=== PATIENT | female | born 1965 | race Caucasian/White ===

== ENCOUNTER 2017-01-31 19:32 | Inpatient (IN) | payer BC, OTHER ==
[~2017-01-31] VITALS: Ht 160 cm; Wt 40.4 kg
[2017-01-31 22:25] LABS: HEMOGLOBIN 16.5 gm/dl (12.3-15.3); RED BLOOD COUNT 5.06 M/UL (4.00-5.10)
[2017-01-31 22:46] LABS: BUN/CREATININE RATIO 23 (0-10)
[2017-02-01 08:05] LABS: HEMOGLOBIN 16.2 gm/dl (12.3-15.3); RED BLOOD COUNT 5.12 M/UL (4.00-5.10); WHITE BLOOD COUNT 10.2 K/UL (4.5-11.0)
[2017-02-01] MEDS ORDERED: DOXYCYCLINE MO100 MG PO (09:54)
[2017-02-01] MEDS ORDERED: MEGACE SUSP40 MG/M1 PO (09:57)
[2017-02-01] MEDS ORDERED: SINGULAIR10 MG PO (09:58)
[2017-02-01] MEDS ORDERED: NICOTINE PATCH1 EAC5 TD (10:06)
[2017-02-01] MEDS ORDERED: FLONASE 0.05% N16 GM (10:08)
[2017-02-01] MEDS ORDERED: IPRAT-ALBUT 0.5-3 ML INH (10:09)
[2017-02-01] MEDS ORDERED: SPIRIVA INH (19:56)
[2017-02-01] MEDS ORDERED: ZYRTEC10 MG PO (19:57)
[2017-02-02 07:11] LABS: HEMOGLOBIN 14.5 gm/dl (12.3-15.3)
[2017-02-02 07:21] LABS: RED BLOOD COUNT 4.46 M/UL (4.00-5.10); WHITE BLOOD COUNT 19.6 K/UL (4.5-11.0)
[2017-02-02 07:39] LABS: BUN/CREATININE RATIO 46 (0-10)
[2017-02-03 07:11] LABS: RED BLOOD COUNT 4.41 M/UL (4.00-5.10); WHITE BLOOD COUNT 15.1 K/UL (4.5-11.0)
[2017-02-03 07:28] LABS: BUN/CREATININE RATIO 40 (0-10)
[2017-02-05 04:28] LABS: HEMOGLOBIN 13.3 gm/dl (12.3-15.3); RED BLOOD COUNT 4.15 M/UL (4.00-5.10)
[2017-02-05 04:52] LABS: BUN/CREATININE RATIO 46 (0-10)
[2017-02-06 04:36] LABS: HEMOGLOBIN 13.6 gm/dl (12.3-15.3); RED BLOOD COUNT 4.32 M/UL (4.00-5.10); WHITE BLOOD COUNT 11.5 K/UL (4.5-11.0)
[2017-02-06 04:38] LABS: BUN/CREATININE RATIO 40 (0-10)
== END 2017-02-06 09:15 | disposition short-term general hospital (02) | DRG 199 ==
LOC: ER1 19:32 → ZEROF 23:40 → CCU 23:40 → M/S 02-01 16:27 → CCU 02-03 12:20
PROVIDERS: Internal Medicine; Student in an Organized Health Care Education/Training Program; ADMIT Internal Medicine
PROC: 0W9930Z Drainage of Right Pleural Cavity with Drainage Device, Percutaneous Approach (ICD-10-PCS; principal; 2017-02-01)
PROC: 0W9930Z Drainage of Right Pleural Cavity with Drainage Device, Percutaneous Approach (ICD-10-PCS; 2017-02-03)
DX: J93.83 Other pneumothorax (principal); E43 Unspecified severe protein-calorie malnutrition; J96.21 Acute and chronic respiratory failure with hypoxia; J44.1 Chronic obstructive pulmonary disease with (acute) exacerbation; Z68.1 Body mass index [BMI] 19.9 or less, adult; Z72.0 Tobacco use; Z71.6 Tobacco abuse counseling; D72.829 Elevated white blood cell count, unspecified
CPT/HCPCS: 36415; 36600; 71010; 71020; 76000; 80048; 80053; 82550; 82553; 82803; 83605; 83874; 83880; 84484; 85025; 85027; 85379; 87040; 87070; 87205; 94640; 94664; 96365; 96375; 99285; J1100; J1650; J1885; J1956; J2250; J2405; J2920; J2930; J7030; J7120

== ENCOUNTER → 2017-02-13 | Outpatient (CLI) | payer BC ==
[~2017-02-13] MED LIST: DOXYCYCLINE MO100 MG PO; FLONASE 0.05% N16 GM; IPRAT-ALBUT 0.5-3 ML INH; MEGACE SUSP40 MG/M1 PO; NICOTINE PATCH1 EAC5 TD; SINGULAIR10 MG PO; SPIRIVA INH; ZYRTEC10 MG PO
== END ==
LOC: LBRF 19:40
DX: J93.9 Pneumothorax, unspecified (principal)
CPT/HCPCS: 87070; 87077; 87186; 87205

== ENCOUNTER 2020-11-11 10:18 | Inpatient (IN) | payer OTHER ==
[~2020-11-11 10:18] MED LIST changes: +ALBUTEROL2.5 MG/3 M INH; +CALCIUM500 MG PO; +DOXYCYCLINE HY100 MG PO; +DYMISTA NASAL S23 GM; +HUMIBID LA TAB600 MG PO; +LOPRESSOR 50 MG50 MG PO; +LOPRESSOR50 MG PO; +MEGACE 400400 MG/10 PO; +MONTELUKAST SODI5 MG PO; +PAROXETINE HCL20 MG PO; +PREDNISONE 5 MG5 MG PO; +PREDNISONE5 MG PO; +PROTONIX 40 MG40 M1 PO; +SENNA-TIME S T1 EACH PO; +SPIRIVA RESPIMAT4 GM INH; +SPIRIVA18 MCG INH; +SYMBICORT 160-1 INHA INH; +SYMBICORT 16010.2 GM INH; +VENTOLIN HFA 66.7 GM INH
[2020-11-11 10:52] LABS: RED BLOOD COUNT 4.84 M/UL (4.00-5.10); WHITE BLOOD COUNT 14.9 K/UL (4.5-11.0)
[2020-11-11 11:31] LABS: BUN/CREATININE RATIO 30 (0-10)
[2020-11-11] MEDS ORDERED: NICOTINE PATCH1 EAC5 TOP (14:22)
[2020-11-12 02:39] LABS: HEMOGLOBIN 13.4 gm/dl (12.3-15.3); WHITE BLOOD COUNT 12.9 K/UL (4.5-11.0)
[2020-11-12 02:40] LABS: RED BLOOD COUNT 4.25 M/UL (4.00-5.10)
[2020-11-12 03:43] LABS: BUN/CREATININE RATIO 27 (0-10)
[2020-11-13 03:50] LABS: HEMOGLOBIN 11.4 gm/dl (12.3-15.3); RED BLOOD COUNT 3.65 M/UL (4.00-5.10); WHITE BLOOD COUNT 18.7 K/UL (4.5-11.0)
[2020-11-13 04:16] LABS: BUN/CREATININE RATIO 47 (0-10)
[2020-11-14 03:32] LABS: HEMOGLOBIN 11.6 gm/dl (12.3-15.3); RED BLOOD COUNT 3.73 M/UL (4.00-5.10); WHITE BLOOD COUNT 15.9 K/UL (4.5-11.0)
[2020-11-14 04:06] LABS: BUN/CREATININE RATIO 64 (0-10)
[2020-11-15 02:45] LABS: HEMOGLOBIN 12.3 gm/dl (12.3-15.3); RED BLOOD COUNT 3.86 M/UL (4.00-5.10); WHITE BLOOD COUNT 13.7 K/UL (4.5-11.0)
[2020-11-15 03:11] LABS: BUN/CREATININE RATIO 54 (0-10)
[2020-11-15] MEDS ORDERED: LACTULOSE20 GM/30 M PO (08:52)
[2020-11-15] MEDS ORDERED: MYCOSTATIN100000 UTS PO (08:52)
[2020-11-15] MEDS ORDERED: DOXYCYCLINE HY100 MG PO (08:52)
[2020-11-15] MEDS ORDERED: RAMELTEON8 MG PO (08:52)
[2020-11-15] MEDS ORDERED: NICOTINE PATCH1 EAC5 TOP (08:52)
[2020-11-15] MEDS ORDERED: COLACE 100MG C100 MG PO (08:52)
[2020-11-15] MEDS ORDERED: PREDNISONE5 MG PO (08:52)
== END 2020-11-15 13:15 | disposition home or self-care (01) | DRG 191 ==
LOC: ER1 10:18 → CDU 12:43 → PROG CARE 12:43
PROVIDERS: Internal Medicine; Internal Medicine Pulmonary Disease; Nurse Practitioner; Physician Assistant; ADMIT Internal Medicine
PROC: 0W9930Z Drainage of Right Pleural Cavity with Drainage Device, Percutaneous Approach (ICD-10-PCS; principal; 2020-11-11)
PROC: 3E02340 Introduction of Influenza Vaccine into Muscle, Percutaneous Approach (ICD-10-PCS; 2020-11-11)
DX: J43.9 Emphysema, unspecified (principal); E44.0 Moderate protein-calorie malnutrition; Z68.1 Body mass index [BMI] 19.9 or less, adult; E87.2 Acidosis; E87.1 Hypo-osmolality and hyponatremia; J93.12 Secondary spontaneous pneumothorax; F17.210 Nicotine dependence, cigarettes, uncomplicated; Z99.81 Dependence on supplemental oxygen; Z71.6 Tobacco abuse counseling; I10 Essential (primary) hypertension; F41.9 Anxiety disorder, unspecified; M81.0 Age-related osteoporosis without current pathological fracture; K21.9 Gastro-esophageal reflux disease without esophagitis; G47.00 Insomnia, unspecified; Z20.822 Contact with and (suspected) exposure to COVID-19; Z66 Do not resuscitate; R91.8 Other nonspecific abnormal finding of lung field; Z23 Encounter for immunization
CPT/HCPCS: 36415; 36600; 71045; 71046; 80053; 81001; 82550; 82553; 82803; 83605; 83874; 83880; 84484; 85025; 87040; 87086; 90471; 90686; 93005; 94640; 94664; 94760; 96365; 96375; 99285; G0008; J0696; J1100; J1650; J1885; J2920; J7030; U0002

== ENCOUNTER 2020-11-16 11:48 | Emergency (ER) | payer OTHER ==
[~2020-11-16 11:48] MED LIST changes: +COLACE 100MG C100 MG PO; +LACTULOSE20 GM/30 M PO; +MYCOSTATIN100000 UTS PO; +NICOTINE PATCH1 EAC5 TOP; +RAMELTEON8 MG PO
[2020-11-16 12:26] LABS: HEMOGLOBIN 13.9 gm/dl (12.3-15.3); WHITE BLOOD COUNT 12.9 K/UL (4.5-11.0)
[2020-11-16 12:30] LABS: RED BLOOD COUNT 4.36 M/UL (4.00-5.10)
[2020-11-16 12:44] LABS: BUN/CREATININE RATIO 42 (0-10)
== END 2020-11-16 19:28 | disposition short-term general hospital (02) ==
LOC: ER1 11:48 → CDU 16:22 → ER1 16:22
PROVIDERS: Family Medicine
DX: J93.83 Other pneumothorax (principal); J98.2 Interstitial emphysema; J44.9 Chronic obstructive pulmonary disease, unspecified; K21.9 Gastro-esophageal reflux disease without esophagitis; R91.8 Other nonspecific abnormal finding of lung field; I10 Essential (primary) hypertension; F41.9 Anxiety disorder, unspecified; M81.0 Age-related osteoporosis without current pathological fracture; E43 Unspecified severe protein-calorie malnutrition; F17.210 Nicotine dependence, cigarettes, uncomplicated; Z99.81 Dependence on supplemental oxygen; Z79.52 Long term (current) use of systemic steroids; Z20.822 Contact with and (suspected) exposure to COVID-19
CPT/HCPCS: 36600; 71045; 71250; 80053; 82550; 82553; 82803; 83605; 83874; 84484; 85025; 93005; 96374; 96375; 99285; J2930; U0002

== ENCOUNTER → 2020-12-30 | Outpatient (CLI) | payer OTHER ==
[~2020-12-30] MED LIST changes: +BROVANA15 MCG/2 M NEB; +CLARITIN 10MG T10 MG PO; +IPRATROPIU0.2 MG/1 M INH; +LEVALBUTER1.25 MG/3 NEB; +MILLIPRED5 MG PO; +PREDNISONE 10 M10 MG PO; +PREDNISONE20 MG PO; +VIBRAMYCIN100 MG PO
== END ==
LOC: EXRD 11:02
DX: J93.9 Pneumothorax, unspecified (principal); R06.02 Shortness of breath; R91.8 Other nonspecific abnormal finding of lung field
CPT/HCPCS: 71046

== ENCOUNTER 2021-02-13 17:57 | Emergency (ER) | payer OTHER ==
[~2021-02-13 17:57] MED LIST changes: -BROVANA15 MCG/2 M NEB; -CLARITIN 10MG T10 MG PO; -IPRATROPIU0.2 MG/1 M INH; -LEVALBUTER1.25 MG/3 NEB; -MILLIPRED5 MG PO; -PREDNISONE 10 M10 MG PO; -PREDNISONE20 MG PO; -VIBRAMYCIN100 MG PO
[2021-02-13 18:37] LABS: HEMOGLOBIN 13.5 gm/dl (12.3-15.3); RED BLOOD COUNT 4.25 M/UL (4.00-5.10); WHITE BLOOD COUNT 14.2 K/UL (4.5-11.0)
[2021-02-13 18:58] LABS: BUN/CREATININE RATIO 33 (0-10)
[2021-02-13] MEDS ORDERED: VIBRAMYCIN100 MG PO (19:56)
[2021-02-13] MEDS ORDERED: PREDNISONE 10 M10 MG PO (19:56)
== END 2021-02-13 20:40 | disposition home or self-care (01) ==
LOC: ER1 17:57
PROVIDERS: Emergency Medicine
DX: J44.0 Chronic obstructive pulmonary disease with (acute) lower respiratory infection (principal); J20.9 Acute bronchitis, unspecified; J44.1 Chronic obstructive pulmonary disease with (acute) exacerbation; Z20.822 Contact with and (suspected) exposure to COVID-19
CPT/HCPCS: 0240U; 71045; 80053; 82550; 82553; 83874; 83880; 84484; 85025; 93005; 94664; 96374; 99285; J1100

== ENCOUNTER 2021-02-24 05:06 | Emergency (ER) | payer OTHER ==
[~2021-02-24 05:06] MED LIST changes: +PREDNISONE 10 M10 MG PO; +VIBRAMYCIN100 MG PO
[2021-02-24 05:26] LABS: HEMOGLOBIN 13.3 gm/dl (12.3-15.3); RED BLOOD COUNT 4.2 M/UL (4.00-5.10); WHITE BLOOD COUNT 12.7 K/UL (4.5-11.0)
[2021-02-24 05:54] LABS: BUN/CREATININE RATIO 26 (0-10)
[2021-02-24] MEDS ORDERED: PREDNISONE20 MG PO (06:31)
== END 2021-02-24 07:21 | disposition home or self-care (01) ==
LOC: ER1 05:06
PROVIDERS: Family Medicine
DX: J44.1 Chronic obstructive pulmonary disease with (acute) exacerbation (principal); J96.11 Chronic respiratory failure with hypoxia; R51.9 Headache, unspecified; J96.12 Chronic respiratory failure with hypercapnia; F17.200 Nicotine dependence, unspecified, uncomplicated; I10 Essential (primary) hypertension; Z20.822 Contact with and (suspected) exposure to COVID-19
CPT/HCPCS: 0240U; 36600; 71045; 80048; 82550; 82553; 82803; 83605; 83874; 83880; 84484; 85025; 93005; 94664; 96374; 99285; J2930

== ENCOUNTER 2021-03-16 16:10 | Inpatient (IN) | payer OTHER ==
[~2021-03-16] VITALS: Ht 160 cm; Wt 44.0 kg
[~2021-03-16 16:10] MED LIST changes: +PREDNISONE20 MG PO
[2021-03-16 16:58] LABS: HEMOGLOBIN 10.9 gm/dl (12.3-15.3); RED BLOOD COUNT 3.47 M/UL (4.00-5.10); WHITE BLOOD COUNT 13.5 K/UL (4.5-11.0)
[2021-03-16 17:29] LABS: BUN/CREATININE RATIO 23 (0-10)
[2021-03-16] MEDS ORDERED: PREDNISONE 5 MG5 MG PO (19:42)
[2021-03-17 03:31] LABS: HEMOGLOBIN 10.5 gm/dl (12.3-15.3); RED BLOOD COUNT 3.45 M/UL (4.00-5.10); WHITE BLOOD COUNT 13.1 K/UL (4.5-11.0)
[2021-03-17 06:39] LABS: BUN/CREATININE RATIO 23 (0-10)
[2021-03-17] MEDS ORDERED: PROTONIX 40 MG40 M1 PO (10:16)
[2021-03-18 04:23] LABS: HEMOGLOBIN 10.7 gm/dl (12.3-15.3); RED BLOOD COUNT 3.49 M/UL (4.00-5.10); WHITE BLOOD COUNT 13.8 K/UL (4.5-11.0)
[2021-03-18 05:02] LABS: BUN/CREATININE RATIO 35 (0-10)
[2021-03-19 04:34] LABS: HEMOGLOBIN 10.6 gm/dl (12.3-15.3); RED BLOOD COUNT 3.46 M/UL (4.00-5.10); WHITE BLOOD COUNT 11.2 K/UL (4.5-11.0)
[2021-03-19 04:55] LABS: BUN/CREATININE RATIO 34 (0-10)
[2021-03-20 04:10] LABS: HEMOGLOBIN 11.2 gm/dl (12.3-15.3); RED BLOOD COUNT 3.7 M/UL (4.00-5.10); WHITE BLOOD COUNT 11.4 K/UL (4.5-11.0)
[2021-03-20 04:33] LABS: BUN/CREATININE RATIO 41 (0-10)
[2021-03-20 18:50] LABS: BUN/CREATININE RATIO 39 (0-10)
[2021-03-21 04:42] LABS: HEMOGLOBIN 11.1 gm/dl (12.3-15.3); RED BLOOD COUNT 3.64 M/UL (4.00-5.10); WHITE BLOOD COUNT 13.5 K/UL (4.5-11.0)
[2021-03-21 05:11] LABS: BUN/CREATININE RATIO 35 (0-10)
--- NOTE | 2021-03-21 14:45 | NUR ---
1435: RECEIVED REPORT FROM LANI REIS. RN ASSUMED CARE OF THIS PATIENT.
[2021-03-22 04:19] LABS: HEMOGLOBIN 11.2 gm/dl (12.3-15.3); RED BLOOD COUNT 3.65 M/UL (4.00-5.10); WHITE BLOOD COUNT 14.5 K/UL (4.5-11.0)
[2021-03-22 04:45] LABS: BUN/CREATININE RATIO 46 (0-10)
[2021-03-22] MEDS ORDERED: CLARITIN 10MG T10 MG PO (11:54)
[2021-03-22] MEDS ORDERED: LEVALBUTER1.25 MG/3 NEB (11:54)
[2021-03-22] MEDS ORDERED: BROVANA15 MCG/2 M NEB (12:10)
[2021-03-22] MEDS ORDERED: MILLIPRED5 MG PO (12:10)
[2021-03-22] MEDS ORDERED: IPRATROPIU0.2 MG/1 M INH (12:10)
== END 2021-03-22 15:24 | disposition home or self-care (01) | DRG 189 ==
LOC: ER1 16:10 → CDU 18:19 → MED SURG 4 18:19
PROVIDERS: Internal Medicine; Physician Assistant Medical; Preventive Medicine Occupational Medicine; ADMIT Internal Medicine
DX: J96.21 Acute and chronic respiratory failure with hypoxia (principal); E43 Unspecified severe protein-calorie malnutrition; Z68.1 Body mass index [BMI] 19.9 or less, adult; J96.22 Acute and chronic respiratory failure with hypercapnia; Z20.822 Contact with and (suspected) exposure to COVID-19; J98.2 Interstitial emphysema; I10 Essential (primary) hypertension; M81.0 Age-related osteoporosis without current pathological fracture; F17.210 Nicotine dependence, cigarettes, uncomplicated; F41.9 Anxiety disorder, unspecified; K21.9 Gastro-esophageal reflux disease without esophagitis; D64.9 Anemia, unspecified; Z98.51 Tubal ligation status; Z80.1 Family history of malignant neoplasm of trachea, bronchus and lung
CPT/HCPCS: 0240U; 36415; 36600; 71045; 80048; 80053; 82550; 82553; 82803; 83690; 83735; 83874; 83880; 84484; 85025; 85027; 86140; 87040; 93005; 94640; 94660; 94664; 94760; 96374; 96375; 99285; J0456; J0696; J1650; J2920; J2930; J7030

== ENCOUNTER 2021-06-28 06:56 | Inpatient (IN) | payer OTHER ==
[~2021-06-28] VITALS: Ht 160 cm; Wt 48.8 kg
[~2021-06-28 06:56] MED LIST changes: +BROVANA15 MCG/2 M NEB; +CLARITIN 10MG T10 MG PO; +IPRATROPIU0.2 MG/1 M INH; +LEVALBUTER1.25 MG/3 NEB; +MILLIPRED5 MG PO; +ULTRAM50 MG PO
[2021-06-28 09:11] LABS: RED BLOOD COUNT 3.82 M/UL (4.00-5.10); WHITE BLOOD COUNT 16.9 K/UL (4.5-11.0)
[2021-06-28 09:30] LABS: BUN/CREATININE RATIO 44 (0-10)
[2021-06-28] MEDS ORDERED: BUDESONIDE-FO10.2 GM INH (18:21)
[2021-06-28] MEDS ORDERED: OMNICEF 300 MG300 MG PO (18:26)
[2021-06-28] MEDS ORDERED: MUCUS RELIEF600 MG PO (18:27)
[2021-06-28] MEDS ORDERED: MEGESTROL400 MG/12 PO (18:28)
[2021-06-28] MEDS ORDERED: MONTELUKAST SODI5 MG PO (18:29)
[2021-06-28] MEDS ORDERED: PREDNISONE5 MG PO (18:29)
[2021-06-28] MEDS ORDERED: CETIRIZINE HCL10 MG PO (18:30)
[2021-06-28] MEDS ORDERED: SPIRIVA18 MCG INH (18:30)
[2021-06-28] MEDS ORDERED: LOPRESSOR 50 MG50 MG PO (18:31)
[2021-06-28] MEDS ORDERED: LEVALBUTER1.25 MG/3 INH (18:33)
[2021-06-28] MEDS ORDERED: NICOTINE PATCH1 EAC1 TD (18:33)
[2021-06-28] MEDS ORDERED: VENTOLIN HFA 66.7 GM INH (18:34)
[2021-06-28] MEDS ORDERED: IPRATROPIU0.2 MG/1 M INH (18:37)
[2021-06-28] MEDS ORDERED: FLONASE 0.05% N16 GM (18:38)
[2021-06-28] MEDS ORDERED: MYCOSTATIN100000 UTS PO (18:41)
[2021-06-28] MEDS ORDERED: COLACE100 MG PO (18:47)
[2021-06-28] MEDS ORDERED: CALCIUM 500 +1 EAC1 PO (18:48)
[2021-06-29 04:40] LABS: HEMOGLOBIN 10.2 gm/dl (12.3-15.3)
[2021-06-29 04:41] LABS: RED BLOOD COUNT 3.27 M/UL (4.00-5.10); WHITE BLOOD COUNT 11.4 K/UL (4.5-11.0)
[2021-06-29 04:56] LABS: BUN/CREATININE RATIO 38 (0-10)
[2021-06-30 04:30] LABS: HEMOGLOBIN 9.8 gm/dl (12.3-15.3); RED BLOOD COUNT 3.19 M/UL (4.00-5.10)
[2021-06-30 04:49] LABS: BUN/CREATININE RATIO 61 (0-10)
[2021-07-01 04:00] LABS: HEMOGLOBIN 9.9 gm/dl (12.3-15.3); RED BLOOD COUNT 3.29 M/UL (4.00-5.10); WHITE BLOOD COUNT 9.9 K/UL (4.5-11.0)
[2021-07-01 04:18] LABS: BUN/CREATININE RATIO 57 (0-10)
[2021-07-01 05:14] LABS: ACINETOBACTER BAUMANNII Not Detected (Negative); CANDIDA ALBICANS Not Detected (Negative); CANDIDA KRUSEI Not Detected (Negative); CANDIDA TROPICALIS Not Detected (Negative); ENTEROCOCCUS Not Detected (Negative); ESCHERICHIA COLI Not Detected (Negative); HAEMOPHILUS INFLUENZAE Not Detected (Negative); KLEBSIELLA OXYTOCA Not Detected (Negative); KLEBSIELLA PNEUMONIAE Not Detected (Negative); KPC-CARBAPENEM-RESISTANCE GENE Not Detected (Negative); PROTEUS Not Detected (Negative); PSEUDOMONAS AERUGINOSA Not Detected (Negative); SERRATIA MARCESANS Not Detected (Negative); STAPHYLOCOCCUS AUREUS Not Detected (Negative); STREP AGALACTIAE (GROUP B) Not Detected (Negative); STREP PYOGENES (GROUP A) Not Detected (Negative); STREPTOCOCCUS Not Detected (Negative); vanA/B (VANCOMYCIN RESIST GENE Not Detected (Negative)
[2021-07-01 06:44] LABS: STAPHYLOCOCCUS DETECTED (Negative); mecA (METHICILLIN RESIST GENE DETECTED (Negative)
--- NOTE | 2021-07-02 06:50 | NUR ---
CALLED TO PTS ROOM TO OBSERVE PT UNRESPONSIVE AND GUPPY BREATHING. HR 127, BP 180/99, O2 SAT 92 ON 3 LPM VIA NC, RESP 19. MD CALLED AND [employer] CALLED
[2021-07-02 07:42] LABS: RED BLOOD COUNT 3.6 M/UL (4.00-5.10)
[2021-07-02 08:19] LABS: BUN/CREATININE RATIO 57 (0-10)
--- NOTE | 2021-07-02 22:52 | NUR ---
IO IN RIGHT LOWER LEG REMOVED WITHOUT COMPLICATION. SITE COVERED WITH STERILE 4X4 DRSG AND SECURED WITH COBAIN WRAP.
[2021-07-03 04:25] LABS: HEMOGLOBIN 9.4 gm/dl (12.3-15.3); WHITE BLOOD COUNT 11.5 K/UL (4.5-11.0)
[2021-07-03 04:28] LABS: RED BLOOD COUNT 3.14 M/UL (4.00-5.10)
[2021-07-03 04:47] LABS: BUN/CREATININE RATIO 73 (0-10)
--- NOTE | 2021-07-03 23:54 | NUR ---
TUBE FEEDING HELD AT THIS TIME. NPO FOR PROCEDURE IN AM .
[2021-07-04 04:51] LABS: HEMOGLOBIN 9.1 gm/dl (12.3-15.3); WHITE BLOOD COUNT 13.9 K/UL (4.5-11.0)
[2021-07-04 05:15] LABS: BUN/CREATININE RATIO 79 (0-10)
--- NOTE | 2021-07-04 12:19 | NUR ---
07/04/21 1200 SON TOOK ALL BELONGS WITH HIM, PURSE, CLOTHES, TEETH INCLUDED WITNESSED BY ARIAN CUNNINGHAM RN AND MYSELF
--- NOTE | 2021-07-04 12:19 | NUR ---
07/04/21 1210 OK TO USE PEG FOR MEDICATION LEAVE TO GRAVITY AND MAY RESUME FEEDING TOMORROW PER DR AUGUST
[2021-07-05 05:16] LABS: HEMOGLOBIN 9.2 gm/dl (12.3-15.3); RED BLOOD COUNT 3.07 M/UL (4.00-5.10); WHITE BLOOD COUNT 16.7 K/UL (4.5-11.0)
[2021-07-05 05:31] LABS: BUN/CREATININE RATIO 82 (0-10)
[2021-07-06 05:38] LABS: RED BLOOD COUNT 2.98 M/UL (4.00-5.10); WHITE BLOOD COUNT 12.7 K/UL (4.5-11.0)
[2021-07-06 06:14] LABS: BUN/CREATININE RATIO 93 (0-10)
== END 2021-07-06 09:22 | disposition expired | DRG 4 ==
LOC: ER1 06:56 → CCU 10:39 → PROG CARE 10:39 → CDU 10:39 → PROG CARE 06-29 22:13 → CCU 07-02 08:16
PROVIDERS: Emergency Medicine; Family Medicine; Internal Medicine; Physician Assistant Medical; ADMIT Internal Medicine
PROC: 5A09557 Assistance with Respiratory Ventilation, Greater than 96 Consecutive Hours, Continuous Positive Airway Pressure (ICD-10-PCS; 2021-06-28)
PROC: 5A1955Z Respiratory Ventilation, Greater than 96 Consecutive Hours (ICD-10-PCS; principal; 2021-07-02)
PROC: 0BH17EZ Insertion of Endotracheal Airway into Trachea, Via Natural or Artificial Opening (ICD-10-PCS; 2021-07-02)
PROC: 05HM33Z Insertion of Infusion Device into Right Internal Jugular Vein, Percutaneous Approach (ICD-10-PCS; 2021-07-02)
PROC: 0B110F4 Bypass Trachea to Cutaneous with Tracheostomy Device, Open Approach (ICD-10-PCS; 2021-07-02)
PROC: 0DH63UZ Insertion of Feeding Device into Stomach, Percutaneous Approach (ICD-10-PCS; 2021-07-02)
PROC: 3E0336Z Introduction of Nutritional Substance into Peripheral Vein, Percutaneous Approach (ICD-10-PCS; 2021-07-02)
DX: J96.21 Acute and chronic respiratory failure with hypoxia (principal); G93.41 Metabolic encephalopathy; J18.9 Pneumonia, unspecified organism; I21.3 ST elevation (STEMI) myocardial infarction of unspecified site; J44.1 Chronic obstructive pulmonary disease with (acute) exacerbation; J44.0 Chronic obstructive pulmonary disease with (acute) lower respiratory infection; J96.22 Acute and chronic respiratory failure with hypercapnia; F17.210 Nicotine dependence, cigarettes, uncomplicated; R91.1 Solitary pulmonary nodule; I10 Essential (primary) hypertension; M81.0 Age-related osteoporosis without current pathological fracture; F41.9 Anxiety disorder, unspecified; D64.9 Anemia, unspecified; Z20.822 Contact with and (suspected) exposure to COVID-19; E78.5 Hyperlipidemia, unspecified; K21.9 Gastro-esophageal reflux disease without esophagitis; Z98.51 Tubal ligation status; Z51.5 Encounter for palliative care; Z98.890 Other specified postprocedural states; Z90.5 Acquired absence of kidney; Z80.1 Family history of malignant neoplasm of trachea, bronchus and lung; Z79.899 Other long term (current) drug therapy; J98.2 Interstitial emphysema
CPT/HCPCS: ECHO; 31500; 36415; 36600; 51702; 71045; 74018; 80048; 80053; 80202; 82550; 82553; 82803; 82962; 83605; 83735; 83874; 84484; 85025; 85027; 87040; 87077; 87150; 87186; 92950; 93005; 93306; 94002; 94003; 94640; 94660; 94664; 94760; 96374; 96375; 99285; C1751; C9113; J0171; J0282; J0360; J0461; J0692; J0696; J1100; J1650; J2060; J2185; J2250; J2704; J2920; J2930; J3010; J3370; J3475; J7030; J7070; U0002